=== PATIENT | male | born 1975 | race Caucasian/White ===

== ENCOUNTER 2022-10-29 02:43 | Emergency (ER) | payer SELFPAY ==
--- NOTE | ~2022-10-29 | XR_ITS ---
XR hand LT min 3V 10/29/2022 02:55 Indication: Left fourth finger pain Procedure: 3 views left hand Comparison: No prior studies for comparison. Findings: There is dorsal radial dislocation of the left fourth proximal interphalangeal joint. There are subtle ossific fragments adjacent to the joint, suspicious for avulsion. Impression: 1: Dorsal radial dislocation of the left fourth PIP joint with probable small avulsion fragments rajan cent to the joint. Dr. Simeon Alexis discussed with Dr. Zendejas at 10/29/2022 10:30 PROTOCOL MANAGER. Reviewed, dictated and finalized at location A. OCOL MANAGER Impression: 1: Dorsal radial dislocation of the left fourth PIP joint with probable small a vulsion fragments adjacent to the joint. Dr. Simeon Alexis discussed with Dr. Zendejas at 10/29/2022 10:30 PROTOCOL MANAGER.
[2022-10-29 02:47] VITALS: BP 128/93; PULSE 79; RESP 18; TEMP 36.4; O2SAT 100
[2022-10-29] MEDS: KETOROLAC (*BKC) 60 MG/2 ML VIAL IM (02:56)
[2022-10-29] MEDS: LIDOCAINE HCL 1% LOCAL INJ 10 ML VIAL INFILTRATE (03:18)
--- NOTE | 2022-10-29 03:24 | ED.UPPEXIN ---
HPI - Extremity Injury (Upper) General Chief Complaint: Extremity Injury, Upper Stated Complaint: Hand Injury Source: patient Mode of arrival: ambulatory Limitations: no limitations History of Present Illness HPI narrative: this is a 47-year-old gentleman that presents after he fell in his garage causing injury to his left 4th finger which shows a mild deformity, has decreased range of motion secondary to pain. There is currently no numbness or tingling. MD complaint: injury to: left Onset (ago): hour(s) Other Extremity Injury: Left: fingers ( 4th finger dislocation) Handedness: right Place: home Severity: moderate Severity scale (1-10): 6 Relieving factors: immobilization Exacerbating factors: movement of extremity Context: fall and direct blow Related Data Allergies Allergy/AdvReac Type Severity Reaction Status Date / Time No Known Allergies Allergy Verified 10/29/22 02:49 Review of Systems Review of Systems: All systems reviewed & are unremarkable except as noted in HPI and below PMFSH Past Medical History Medical History Patient denies medical problems Exam Const: General: healthy appearing Nutritional Appearance: well nourished Orientation/consciousness: patient oriented x3 Limitations: no limitations HENMT: Head: normal to inspection Mouth: Yes Normal oral and palatal mucosa present Eyes: Conjunctivae: conjunctivae normal Pupils: Equal, round and reactive pupils present EOM: EOMs intact bilaterally Neck: Neck: normal visual inspection Chest: Chest palpation & inspection: normal inspection of the chest Resp: Effort & Inspection: normal respiratory effort Cardio: Rate: regular rate Rhythm: regular rhythm GI: GI Palp: Yes Soft to palpation Auscultation: normal bowel sounds : General: Yes bladder normal to palpation Urinary Catheter: Urinary Catheter: patent and draining Skin: General skin exam: normal color Rashes: no rashes Neuro: General: patient oriented x3 Cranial nerves: Yes Nystagmus not present Speech: normal speech Extrem: Other: left 4th metacarpal mild dislocation pain and tenderness with palpation and movement Psych: Mental Status: mental status grossly normal Affect: normal affect Course Course Emergency Course: patient received 60 of Toradol IM, also a nerve block with 1% lidocaine to the left 4th finger reduction attempted, minimal reduction, splinted and advised to follow with plastics for further evaluation. Vital Signs Vital signs: Vital Signs Temperature 36.4 C L 10/29/22 02:47 Pulse Rate 79 10/29/22 02:47 Respiratory Rate 18 10/29/22 02:47 Blood Pressure 128/93 H 10/29/22 02:47 Pulse Oximetry 100 10/29/22 02:47 Oxygen Delivery Room Air 10/29/22 02:47 Temperature 36.4 C L 10/29/22 02:47 Pulse Rate 79 10/29/22 02:47 Respiratory Rate 18 10/29/22 02:47 Blood Pressure 128/93 H 10/29/22 02:47 Pulse Oximetry 100 10/29/22 02:47 Oxygen Delivery Room Air 10/29/22 02:47 Procedures Nerve Block Nerve Block 1: Nerve block date: 10/29/22 Nerve block time: 03:29 Local Anesthetic: lidocaine 1% Amount of anesthesia used (mL): 5 Side: left Nerve Blocks: digital Intraoral Nerve Block: supraperiosteal Procedure Successful: No Patient Tolerated Procedure: no complications Complications: pain with procedure Critical Care Time Critical Care Time Critical Care Time: No Discharge Plan Discharge Clinical Impression: Dislocation of finger Qualifiers: Encounter type: initial encounter Qualified Code(s): S63.259A - Unspecified dislocation of unspecified finger, initial encounter Patient Disposition: Home, Self-Care Condition: Stable Instructions: Antibiotic Form, Finger Dislocation (ED) Additional Instructions: take medicine as prescribed follow-up primary care physician for referral to plastics
== END 2022-10-29 03:40 | disposition home or self-care (01) ==
PROVIDERS: Emergency Provider Emergency Medicine; PCP Family Medicine
DX: S63.285A Dislocation of proximal interphalangeal joint of left ring finger, initial encounter (principal); W19.XXXA Unspecified fall, initial encounter; Y92.008 Other place in unspecified non-institutional (private) residence as the place of occurrence of the external cause
CPT/HCPCS: 26770; 73130; 96372; 99285; J1885

== ENCOUNTER 2025-03-05 13:18 | Emergency (ER) | payer MEDICAID, SELFPAY ==
--- NOTE | ~2025-03-05 | XR_ITS ---
XR shoulder RT min 2V Ordering provider: Zion Calvillo MD History: . right shoulder injury . Comparison: None. FINDINGS: BONES: No acute fracture or dislocation. JOINT SPACES: Mild acromioclavicular arthropathy. The glenohumeral joint is normal. SOFT TISSUES: Normal. IMPRESSION: No acute osseous abnormality right shoulder. Reviewed, dictated and finalized at location A.
--- NOTE | ~2025-03-05 | XR_ITS ---
EXAM/PROCEDURE: XR ribs RT 2V - 03/05/2025 13:23 CDT HISTORY: 49 years old Male with right rib injury TECHNIQUE: Three view(s) of the chest. COMPARISON: None available. FINDINGS: LUNGS/ PLEURA: No focal consolidation. No appreciable pneumothorax or large pleural effusion. Calcifi ed granuloma in the right lung base. HEART/ MEDIASTINUM: Heart appears normal in size. BONES: No acute osseous abnormality. No fractures seen. Posterior spinal fusion hardware in place. In tact hardware. OTHER: Visualized upper abdomen is unremarkable. IMPRESSION: No fracture seen. Reviewed, dictated and finalized at location A. IMPRESSION: No fracture seen.
[2025-03-05 13:18] VITALS: BP 135/69; PULSE 83; RESP 18; TEMP 36.6; O2SAT 97
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
[2025-03-05 14:27] VITALS: BP 121/82; PULSE 81; RESP 16; O2SAT 98
[2025-03-05 14:28] VITALS: BP 121/82; PULSE 81; RESP 16; TEMP 36.6; O2SAT 98
== END 2025-03-05 14:28 | disposition home or self-care (01) ==
PROVIDERS: Emergency Provider Emergency Medicine; PCP Family Medicine
DX: S46.911A Strain of unspecified muscle, fascia and tendon at shoulder and upper arm level, right arm, initial encounter (principal); S23.41XA Sprain of ribs, initial encounter; V86.95XA Unspecified occupant of 3- or 4- wheeled all-terrain vehicle (ATV) injured in nontraffic accident, initial encounter
CPT/HCPCS: 71100; 73030; 99283